=== PATIENT | male | born 1955 ===

== ENCOUNTER 2020-02-12 08:45 | Outpatient (CLI) | payer OTHER ==
[2020-02-13] MEDS ORDERED: CALAN PO (09:04)
[2020-02-13] MEDS ORDERED: CRESTOR10 MG PO (09:05)
== END 2020-02-12 16:57 | disposition home or self-care (01) ==
LOC: EDBD 08:45 → OFIC 805 08:45
PROVIDERS: ATTEND Otolaryngology
DX: H91.8X1 Other specified hearing loss, right ear (principal); H72.91 Unspecified perforation of tympanic membrane, right ear

== ENCOUNTER 2020-02-18 07:37 | Day surgery (SDC) | payer OTHER ==
[~2020-02-18 07:37] MED LIST: CALAN PO; CRESTOR10 MG PO
[2020-02-18] MEDS ORDERED: CIPRODEX OTIC7.5 ML OT (15:01)
[2020-02-18] MEDS ORDERED: KEFLEX500 MG PO (15:02)
== END 2020-02-18 18:00 | disposition home or self-care (01) ==
LOC: CIR.AMB 07:37 → EDBD 08:00 → CIR.AMB 08:30
PROVIDERS: ATTEND Otolaryngology
DX: H72.01 Central perforation of tympanic membrane, right ear (principal); H90.11 Conductive hearing loss, unilateral, right ear, with unrestricted hearing on the contralateral side; Z20.828 Contact with and (suspected) exposure to other viral communicable diseases

== ENCOUNTER 2020-02-26 09:08 | Outpatient (CLI) | payer OTHER ==
[~2020-02-26 09:08] MED LIST changes: +CIPRODEX OTIC7.5 ML OT; +KEFLEX500 MG PO
== END 2020-02-26 11:26 | disposition home or self-care (01) ==
LOC: OFIC 805 09:08
PROVIDERS: ATTEND Otolaryngology
DX: H72.91 Unspecified perforation of tympanic membrane, right ear (principal); H91.8X1 Other specified hearing loss, right ear; H92.01 Otalgia, right ear; H60.8X1 Other otitis externa, right ear

== ENCOUNTER 2020-03-04 08:25 | Outpatient (CLI) | payer OTHER | END 2020-03-04 14:43 | disposition home or self-care (01) | LOC: OFIC 805 08:25 | PROVIDERS: ATTEND Otolaryngology | DX: H72.91 Unspecified perforation of tympanic membrane, right ear (principal); H61.21 Impacted cerumen, right ear; H90.41 Sensorineural hearing loss, unilateral, right ear, with unrestricted hearing on the contralateral side ==

== ENCOUNTER 2020-03-13 09:59 | Outpatient (CLI) | payer OTHER | END 2020-03-13 10:15 | disposition home or self-care (01) | LOC: OFIC 805 09:59 | PROVIDERS: ATTEND Otolaryngology | DX: H72.91 Unspecified perforation of tympanic membrane, right ear (principal); H61.21 Impacted cerumen, right ear; H90.41 Sensorineural hearing loss, unilateral, right ear, with unrestricted hearing on the contralateral side ==

== ENCOUNTER 2020-04-15 08:39 | Outpatient (CLI) | payer OTHER | END 2020-04-15 17:13 | disposition home or self-care (01) | LOC: OFIC 805 08:39 | PROVIDERS: ATTEND Otolaryngology | DX: H72.91 Unspecified perforation of tympanic membrane, right ear (principal) ==

== ENCOUNTER 2021-11-20 06:20 | Day surgery (SDC) | payer OTHER ==
[~2021-11-20] VITALS: Wt 85.3 kg
[2021-11-20] MEDS ORDERED: CEPHALEXIN500 M1 PO (13:55)
[2021-11-20] MEDS ORDERED: CILOXAN5 ML OTIC (13:55)
== END 2021-11-20 18:11 | disposition home or self-care (01) ==
LOC: CIR.AMB 06:20
PROVIDERS: ATTEND Otolaryngology Otology & Neurotology
DX: H72.01 Central perforation of tympanic membrane, right ear (principal); H66.21 Chronic atticoantral suppurative otitis media, right ear; I10 Essential (primary) hypertension; Z20.822 Contact with and (suspected) exposure to COVID-19